=== PATIENT | male | born 1950 | race Caucasian/White ===

== ENCOUNTER 2023-05-12 09:30 | Inpatient (IN) | payer OTHER ==
[~2023-05-12] VITALS: Ht 170.2 cm; Wt 74.4 kg
[2023-05-12] MEDS: LR 1,000 ML IV SCH (08:00)
[2023-05-12 09:42] VITALS: BP_SYST 131; PULSE 71; RESP 18; TEMP 98.3; O2SAT 96
[2023-05-12] MEDS ORDERED: ONDANSETRON HCL 4 MG/2 ML VIAL IVP ONE (10:15)
[2023-05-12] MEDS ORDERED: FAMOTIDINE PF 20 MG/2 ML VIAL IVP ONE (10:15)
[2023-05-12] MEDS ORDERED: NACL 0.9% 1,000 ML IV ONE (10:15)
[2023-05-12] MEDS ORDERED: MORPHINE 4 MG INJ. 4 MG/ML VIAL IVP ONE (10:15)
[2023-05-12 10:30] LABS: BASOPHILS % (AUTO) 0.2 % (0.0-2.0); EOSINOPHILS # (AUTO) 0.1 K/uL (0.0-0.4); EOSINOPHILS % (AUTO) 1.4 % (0.0-4.0); HEMATOCRIT 33.4 % (36-54); HEMOGLOBIN 10.4 g/dL (14.0-18.0); LYMPHOCYTES # (AUTO) 1.2 K/uL (1.0-5.5); LYMPHOCYTES % (AUTO) 15.1 % (20.5-51.5); MEAN CORPUSCULAR HEMOGLOBIN 26 pg (27-31); MEAN CORPUSCULAR HGB CONC 31 % (32-36); MEAN CORPUSCULAR VOLUME 83 fL (79.0-98.0); MONOCYTES # (AUTO) 0.8 K/uL (0.0-1.0); MONOCYTES % (AUTO) 10.4 % (1.7-9.3); NEUTROPHILS # (AUTO) 5.8 K/uL (1.8-7.7); NEUTROPHILS % (AUTO) 72.9 % (40.0-70.0); PLATELET COUNT (AUTO) 303 K/uL (130-430); RED BLOOD CELL COUNT(AUTO) 4.04 MIL/uL (4.2-6.2); RED CELL DISTRIBUTION WIDTH 14.5 % (9.0-15.0); WHITE BLOOD COUNT (AUTO) 7.9 K/uL (4.8-10.8)
[2023-05-12 10:36] LABS: ANION GAP 5 (5-15); CALCIUM 8.7 mg/dL (8.4-11.0); CARBON DIOXIDE 29 mmol/L (23-29); CHLORIDE 104 mmol/L (98-107); CREATININE 1.38 mg/dL (0.55-1.30); GLUCOSE 111 mg/dL (74-106); POTASSIUM 4.2 mmol/L (3.5-5.1); SODIUM SERUM 138 mmol/L (136-145); UREA NITROGEN, BLOOD 24 mg/dL (8-21)
[2023-05-12 10:41] LABS: ALANINE AMINOTRANSFERASE 22 U/L (12-78); ALBUMIN 2.7 g/dL (3.4-4.8); ASPARTATE AMINOTRANSFERASE 15 U/L (10-37); BILIRUBIN,DIRECT 0.1 mg/dL (0.0-0.3); LIPASE 31 U/L (16-77); TOTAL BILIRUBIN 0.4 mg/dL (0.0-1.0); TOTAL PROTEIN, SERUM 6.6 g/dL (6.4-8.3)
[2023-05-12 10:44] LABS: INR 0.9 (0.80-1.20); PROTHROMBIN TIME 9.7 SECS (9.5-12.5)
[2023-05-12] MEDS ORDERED: metroNIDAZOLE 500 mg/NS 100 ML IV ONE ×2 (12:00→22:54)
[2023-05-12 12:17] LABS: COVID19 ANTIGEN SOFIA FIA NEGATIVE (NEGATIVE)
[2023-05-12 12:24] LABS: INFLUENZA TYPE A Negative (NEGATIVE); INFLUENZA TYPE B NEGATIVE (NEGATIVE)
[2023-05-12] MEDS: CIPROFLOXACIN LACT 400 MG/D5W 200 ML IV SCH ×2 (12:53→23:03)
[2023-05-12 12:54] LABS: BILIRUBIN,URINE NEGATIVE (NEGATIVE); CLARITY/URINE CLEAR (CLEAR); COLOR,URINE YELLOW (YELLOW); GLUCOSE,URINE NEGATIVE (NEGATIVE); KETONES,URINE TRACE (NEGATIVE); LEUKOCYTE ESTERASE ,URINE NEGATIVE (NEGATIVE); NITRITE, URINE NEGATIVE (NEGATIVE); PH,URINE 5.5 (5.0-8.0); PROTEIN URINE NEGATIVE (NEGATIVE); UROBILINOGEN,URINE 0.2 (0.2-1.0)
[2023-05-12 12:57] LABS: BLOOD, URINE TRACE (NEGATIVE)
[2023-05-12] MEDS ORDERED: CIPROFLOXACIN LACT 400 MG/D5W 200 ML IV ONE ×2 (13:00→22:32)
[2023-05-12 13:04] LABS: BACTERIA,URINE RARE /HPF (None Seen); HYALINE CASTS, URINE 0-1 /LPF (None Seen); WBC,URINE 0-3 /HPF (0-3)
[2023-05-12] MEDS ORDERED: TERA10CA4 PO (13:11)
[2023-05-12] MEDS ORDERED: ATOR20TA64 PO (13:11)
[2023-05-12] MEDS ORDERED: METO-542 PO (13:11)
[2023-05-12] MEDS ORDERED: NACL 0.9% 1,000 ML IV SCH (13:15)
[2023-05-12] MEDS ORDERED: ACETAMINOPHEN 325 MG TABLET PO PRN ×2 (13:15)
[2023-05-12] MEDS ORDERED: ONDANSETRON HCL 4 MG/2 ML VIAL IVP PRN ×3 (13:15→16:15)
[2023-05-12] MEDS ORDERED: HYDROcodone/ACETAMIN 5-325 MG TAB (NORCO/ VICODIN) PO PRN ×2 (13:15→15:15)
[2023-05-12] MEDS ORDERED: HYDROmorphone 2 MG/ML VIAL ONE (14:44)
[2023-05-12] MEDS ORDERED: MIDAZOLAM HCL 2 MG/2 ML VIAL (VERSED) ONE (14:45)
[2023-05-12] MEDS ORDERED: WATER FOR IRRIGATION,STERILE 1,000 ML IRRIG.SOLN IR ONE (14:55)
[2023-05-12] MEDS ORDERED: SUCCINYLCHOLINE CHLORIDE 20 MG/ML(QUELICIN) ONE (14:55)
[2023-05-12] MEDS ORDERED: ROCURONIUM BROMIDE 10 MG/ML (ZEMURON) ONE (14:55)
[2023-05-12] MEDS ORDERED: PROPOFOL 200MG/ 20ML VIAL (DIPRIVAN) IV ONE (14:55)
[2023-05-12] MEDS ORDERED: METOCLOPRAMIDE HCL 10 MG/2 ML VIAL ONE (14:55)
[2023-05-12] MEDS ORDERED: SEVOFLURANE 15 MIN GAS INH ONE (14:55)
[2023-05-12] MEDS ORDERED: NS IRRIG SOLN 1000 ML IR ONE (14:55)
[2023-05-12] MEDS ORDERED: LIDOCAINE/EPI 1% 1:100000 20 ML VIAL ONE (14:55)
[2023-05-12] MEDS ORDERED: DEXAMETHASONE SOD PHOSPHATE 4 MG/ML VIAL ONE (14:55)
[2023-05-12] MEDS ORDERED: SUGAMMADEX SODIUM 200 MG/2 ML VIAL IV ONE (14:55)
[2023-05-12] MEDS ORDERED: ePHEDrine sulfate 50 MG/ML VIAL ONE (14:55)
[2023-05-12] MEDS ORDERED: BUPIVACAINE /PF 0.25% 30 ML VIAL INJ ONE (14:55)
[2023-05-12] MEDS ORDERED: ONDANSETRON HCL 4 MG/2 ML VIAL ONE (14:55)
[2023-05-12] MEDS ORDERED: HYDROmorphone 1 MG/ML INJ. CARTRIDGE IM PRN (15:15)
[2023-05-12] MEDS ORDERED: NALOXONE HCL 0.4 MG/ML AMP (NARCAN) IVP PRN (16:15)
[2023-05-12] MEDS ORDERED: HYDROmorphone 1 MG/ML INJ. CARTRIDGE ONE ×2 (17:10→17:29)
[2023-05-12] MEDS: HYDROmorphone 1 MG/ML INJ. CARTRIDGE IVP PRN ×3 (17:12→17:32)
[2023-05-12] MEDS ORDERED: fentaNYL CITRATE/PF 100 MCG/2 ML AMP IVP ONE (17:45)
[2023-05-12] MEDS ORDERED: HYDROmorphone 1 MG/ML INJ. CARTRIDGE IVP ONE (17:45)
[2023-05-12] MEDS ORDERED: ACETAMINOPHEN I.V. 1000 MG 100 ML IV ONE ×2 (17:45→17:46)
[2023-05-12] MEDS ORDERED: fentaNYL CITRATE/PF 100 MCG/2 ML AMP ONE (18:21)
[2023-05-12 20:00] VITALS: BP_SYST 141; PULSE 88; RESP 18; TEMP 97.9; O2SAT 98
[2023-05-12] MEDS: metroNIDAZOLE 250 mg/NS 50 ML IV SCH (22:00)
[2023-05-12 22:24] LABS: BASOPHILS % (AUTO) 0.1 % (0.0-2.0); HEMATOCRIT 28.5 % (36-54); LYMPHOCYTES # (AUTO) 0.3 K/uL (1.0-5.5); LYMPHOCYTES % (AUTO) 4.4 % (20.5-51.5); MEAN CORPUSCULAR HEMOGLOBIN 26 pg (27-31); MEAN CORPUSCULAR HGB CONC 32 % (32-36); MEAN CORPUSCULAR VOLUME 83 fL (79.0-98.0); MONOCYTES # (AUTO) 0.2 K/uL (0.0-1.0); MONOCYTES % (AUTO) 3.2 % (1.7-9.3); NEUTROPHILS # (AUTO) 5.7 K/uL (1.8-7.7); NEUTROPHILS % (AUTO) 92.3 % (40.0-70.0); PLATELET COUNT (AUTO) 270 K/uL (130-430); RED BLOOD CELL COUNT(AUTO) 3.45 MIL/uL (4.2-6.2); RED CELL DISTRIBUTION WIDTH 14.6 % (9.0-15.0); WHITE BLOOD COUNT (AUTO) 6.2 K/uL (4.8-10.8)
[2023-05-13 00:02] VITALS: BP_SYST 134; PULSE 72; RESP 18; TEMP 98.5; O2SAT 96
[2023-05-13] MEDS ORDERED: metroNIDAZOLE 500 mg/NS 100 ML IV ONE (06:15)
[2023-05-13] MEDS: metroNIDAZOLE 250 mg/NS 50 ML IV SCH ×3 (06:40→22:24)
[2023-05-13 06:51] LABS: BASOPHILS % (AUTO) 0.1 % (0.0-2.0); HEMATOCRIT 29.3 % (36-54); HEMOGLOBIN 9.2 g/dL (14.0-18.0); LYMPHOCYTES # (AUTO) 0.5 K/uL (1.0-5.5); LYMPHOCYTES % (AUTO) 7.6 % (20.5-51.5); MEAN CORPUSCULAR HEMOGLOBIN 26 pg (27-31); MEAN CORPUSCULAR HGB CONC 32 % (32-36); MEAN CORPUSCULAR VOLUME 82 fL (79.0-98.0); MONOCYTES # (AUTO) 0.4 K/uL (0.0-1.0); NEUTROPHILS # (AUTO) 5.3 K/uL (1.8-7.7); NEUTROPHILS % (AUTO) 85.3 % (40.0-70.0); PLATELET COUNT (AUTO) 297 K/uL (130-430); RED BLOOD CELL COUNT(AUTO) 3.57 MIL/uL (4.2-6.2); RED CELL DISTRIBUTION WIDTH 14.2 % (9.0-15.0); WHITE BLOOD COUNT (AUTO) 6.2 K/uL (4.8-10.8)
[2023-05-13 07:21] LABS: ALANINE AMINOTRANSFERASE 104 U/L (12-78); ALBUMIN 2.5 g/dL (3.4-4.8); ANION GAP 7 (5-15); CALCIUM 8.7 mg/dL (8.4-11.0); CARBON DIOXIDE 27 mmol/L (23-29); CHLORIDE 105 mmol/L (98-107); CREATININE 0.98 mg/dL (0.55-1.30); GLUCOSE 130 mg/dL (74-106); SODIUM SERUM 139 mmol/L (136-145); TOTAL BILIRUBIN 0.4 mg/dL (0.0-1.0); TOTAL PROTEIN, SERUM 6.2 g/dL (6.4-8.3); UREA NITROGEN, BLOOD 16 mg/dL (8-21)
[2023-05-13 08:00] VITALS: BP_SYST 147; PULSE 92; RESP 18; TEMP 98.6; O2SAT 97; O2SAT 98
[2023-05-13] MEDS: LR 1,000 ML IV SCH ×3 (08:00→22:45)
[2023-05-13 08:42] LABS: ASPARTATE AMINOTRANSFERASE 113 U/L (10-37)
[2023-05-13] MEDS ORDERED: METOPROLOL SUCCINATE 50 MG TAB.SR.24H (TOPROL XL) PO SCH (09:30)
[2023-05-13] MEDS ORDERED: METO25TA6 PO (09:33)
[2023-05-13] MEDS ORDERED: METOPROLOL TARTRATE 50 MG TABLET PO ONE ×2 (09:45)
[2023-05-13 12:00] VITALS: BP_SYST 132; BP_SYST 136; PULSE 82; PULSE 84; RESP 16; RESP 18; TEMP 98.6; TEMP 98.7; O2SAT 98; O2SAT 99
[2023-05-13 16:00] VITALS: BP_SYST 136; PULSE 84; RESP 20; TEMP 98.2; O2SAT 98
[2023-05-13] MEDS: HYDROcodone/ACETAMIN 5-325 MG TAB (NORCO/ VICODIN) PO PRN (17:54)
[2023-05-13 20:00] VITALS: BP_SYST 141; PULSE 79; RESP 18; TEMP 98.8; O2SAT 98
[2023-05-13] MEDS ORDERED: METOPROLOL TARTRATE 50 MG TABLET PO SCH (21:00)
[2023-05-13] MEDS ORDERED: ATORVASTATIN 20 MG TABLET PO SCH (21:00)
[2023-05-13] MEDS ORDERED: METOPROLOL TARTRATE 25 MG TABLET PO SCH (23:45)
[2023-05-14] VITALS: BP_SYST 136; PULSE 89; RESP 18; TEMP 98.9
[2023-05-14] MEDS: HYDROcodone/ACETAMIN 5-325 MG TAB (NORCO/ VICODIN) PO PRN ×2 (02:39→12:00)
[2023-05-14 06:06] LABS: ALANINE AMINOTRANSFERASE 90 U/L (12-78); ALBUMIN 2.5 g/dL (3.4-4.8); ANION GAP 8 (5-15); ASPARTATE AMINOTRANSFERASE 58 U/L (10-37); BASOPHILS % (AUTO) 0.2 % (0.0-2.0); CALCIUM 8.6 mg/dL (8.4-11.0); CARBON DIOXIDE 25 mmol/L (23-29); CHLORIDE 105 mmol/L (98-107); CREATININE 1.09 mg/dL (0.55-1.30); EOSINOPHILS % (AUTO) 0.3 % (0.0-4.0); GLUCOSE 106 mg/dL (74-106); HEMATOCRIT 26.9 % (36-54); HEMOGLOBIN 8.5 g/dL (14.0-18.0); LYMPHOCYTES # (AUTO) 1.8 K/uL (1.0-5.5); LYMPHOCYTES % (AUTO) 23.7 % (20.5-51.5); MEAN CORPUSCULAR HEMOGLOBIN 26 pg (27-31); MEAN CORPUSCULAR HGB CONC 32 % (32-36); MEAN CORPUSCULAR VOLUME 82 fL (79.0-98.0); MONOCYTES % (AUTO) 12.9 % (1.7-9.3); NEUTROPHILS # (AUTO) 4.7 K/uL (1.8-7.7); NEUTROPHILS % (AUTO) 62.9 % (40.0-70.0); PLATELET COUNT (AUTO) 290 K/uL (130-430); POTASSIUM 3.9 mmol/L (3.5-5.1); RED BLOOD CELL COUNT(AUTO) 3.31 MIL/uL (4.2-6.2); RED CELL DISTRIBUTION WIDTH 13.9 % (9.0-15.0); SODIUM SERUM 138 mmol/L (136-145); TOTAL BILIRUBIN 0.4 mg/dL (0.0-1.0); TOTAL PROTEIN, SERUM 5.8 g/dL (6.4-8.3); UREA NITROGEN, BLOOD 19 mg/dL (8-21); WHITE BLOOD COUNT (AUTO) 7.5 K/uL (4.8-10.8)
[2023-05-14] MEDS: metroNIDAZOLE 250 mg/NS 50 ML IV SCH (06:25)
[2023-05-14 08:00] VITALS: BP_SYST 152; PULSE 69; RESP 18; TEMP 98.4; O2SAT 98
[2023-05-14] MEDS: LR 1,000 ML IV SCH (08:45)
[2023-05-14] MEDS ORDERED: METOPROLOL TARTRATE 25 MG TABLET PO SCH (09:00)
[2023-05-14 11:33] VITALS: BP_SYST 133; PULSE 77; RESP 16; TEMP 97.1; O2SAT 100
[2023-05-14] MEDS ORDERED: METR-154 PO (11:43)
[2023-05-14] MEDS ORDERED: DOCU-144 PO (11:46)
[2023-05-14 12:00] VITALS: BP_SYST 144; PULSE 78; RESP 18; TEMP 98.2; O2SAT 98
[2023-05-14 12:57] VITALS: BP_SYST 144; PULSE 69; RESP 18; TEMP 98.4; O2SAT 97
== END 2023-05-14 13:40 | disposition home or self-care (01) | DRG 417 ==
LOC: SED 09:30 → SMU 13:05
PROVIDERS: ADMIT Family Medicine; ATTEND Family Medicine
PROC: 0DNU4ZZ Release Omentum, Percutaneous Endoscopic Approach (ICD-10-PCS; 2023-05-12)
PROC: 0FT44ZZ Resection of Gallbladder, Percutaneous Endoscopic Approach (ICD-10-PCS; principal; 2023-05-12 15:05)
DX: K81.0 Acute cholecystitis (principal); E43 Unspecified severe protein-calorie malnutrition; N17.9 Acute kidney failure, unspecified; K57.32 Diverticulitis of large intestine without perforation or abscess without bleeding; R74.01 Elevation of levels of liver transaminase levels; E86.0 Dehydration; D64.9 Anemia, unspecified; E78.5 Hyperlipidemia, unspecified; Z20.822 Contact with and (suspected) exposure to COVID-19; I10 Essential (primary) hypertension; E11.9 Type 2 diabetes mellitus without complications; Z85.9 Personal history of malignant neoplasm, unspecified; Z79.899 Other long term (current) drug therapy; Z68.25 Body mass index [BMI] 25.0-25.9, adult
CPT/HCPCS: 36415; 71045; 76376; 76705; 80048; 80053; 80076; 81000; 81001; 81015; 83605; 83690; 85025; 85610-TC; 85730-TC; 87040; 87081; 87086; 88304; 93005; 96374; 96375; 97116-GP; 97530-GP; 99285; C1727; J0131; J0330; J0744; J1100; J1170; J2270; J2405; J2704; J2765; J3010; J3465; J3490

== ENCOUNTER 2024-03-29 09:39 | Emergency (ER) | payer OTHER ==
[~2024-03-29] VITALS: Ht 162.6 cm; Wt 81.6 kg
[~2024-03-29 09:39] MED LIST: ATOR20TA64 PO; DOCU-144 PO; METO25TA6 PO; METR-154 PO; TERA10CA4 PO
[2024-03-29 09:46] VITALS: BP_SYST 152; PULSE 74; RESP 18; TEMP 98.3; O2SAT 98
[2024-03-29] MEDS: EPINEPHRINE HCL/PF 1 MG/ML AMP IM ONE (10:13)
[2024-03-29] MEDS: predniSONE 20 MG TABLET PO ONE (10:13)
[2024-03-29] MEDS ORDERED: PRED20TA PO (10:54)
[2024-03-29] MEDS ORDERED: DIPH25CA83 PO (10:54)
[2024-03-29 11:04] VITALS: BP_SYST 141; PULSE 74; RESP 14; TEMP 97.7; O2SAT 96
== END 2024-03-29 11:03 | disposition home or self-care (01) ==
LOC: SED 09:39
DX: R22.0 Localized swelling, mass and lump, head (principal); T78.3XXA Angioneurotic edema, initial encounter; I10 Essential (primary) hypertension; Z86.73 Personal history of transient ischemic attack (TIA), and cerebral infarction without residual deficits; Z79.899 Other long term (current) drug therapy; Z79.2 Long term (current) use of antibiotics; Y65.8 Other specified misadventures during surgical and medical care; Y92.89 Other specified places as the place of occurrence of the external cause
CPT/HCPCS: 99285; 96372; J7512; J0171